=== PATIENT | male | born 1995 | race Hispanic/Latino ===

== ENCOUNTER 2019-05-18 23:04 | Emergency (ER) | payer OTHER, SELFPAY ==
[2019-05-19] MEDS ORDERED: HYDROCODONE/APAP 5/325 MG TAB ONE (00:07)
--- NOTE | 2019-05-19 00:44 | ER ---
Nurse's Notes [facility] Name: Micky Tavares Jr Age: 23 yrs Sex: Male : 1995 Arrival Date: 05/18/2019 Time: 23:08 Bed DIS3 Private MD: Diagnosis: Injury of muscle, fascia and tendon of triceps Presentation: 05/18 23:09 Presenting complaint: Patient states: About a week ago I worked out my triceps then la1 yesterday I noticed my right tricep was swollen and warm and now it extended past my elbow. Transition of care: patient was not received from another setting of care. Onset of symptoms was May 18, 2019. Risk Assessment: Do you want to hurt yourself or someone else? Patient reports no desire to harm self or others. Initial Sepsis Screen: Does the patient meet any 2 criteria? No. Patient's initial sepsis screen is negative. Does the patient have a suspected source of infection? No. Patient's initial sepsis screen is negative. Care prior to arrival: None. 23:09 Method Of Arrival: Ambulatory la1 23:09 Acuity: LETICIA 3 la1 Historical: - Allergies: 23:10 No Known Allergies; la1 - Home Meds: 23:10 None [Active]; la1 - PMHx: 23:11 None; la1 - Immunization history:: Adult Immunizations up to date. - Social history:: Smoking status: Patient/guardian denies using tobacco. - Ebola Screening: : No symptoms or risks identified at this time. Screenin/08 00:29 Abuse screen: Denies threats or abuse. Nutritional screening: No deficits noted. jb4 Tuberculosis screening: No symptoms or risk factors identified. Fall Risk None identified. Assessment: 05/18 23:40 General: Appears in no apparent distress. comfortable, Behavior is calm, cooperative, jb4 appropriate for age. Pain: Denies pain. Neuro: Level of Consciousness is awake, alert, obeys commands, Oriented to person, place, time, situation. Cardiovascular: Patient's skin is warm and dry. Respiratory: Airway is patent Respiratory effort is even, unlabored, Respiratory pattern is regular, symmetrical. GI: No signs and/or symptoms were reported involving the gastrointestinal system. : No signs and/or symptoms were reported regarding the genitourinary system. EENT: No signs and/or symptoms were reported regarding the EENT system. Derm: Skin is intact, Skin is pink, warm \T\ dry. Musculoskeletal: Circulation, motion, and sensation intact. Range of motion: intact in all extremities, Swelling present in palmar aspect of right forearm. 05/19 00:41 Reassessment: Patient appears in no apparent distress at this time. Patient and/or jb4 family updated on plan of care and expected duration. Pain level reassessed. Patient is alert, oriented x 3, equal unlabored respirations, skin warm/dry/pink. Patient denies pain at this time. 00:56 Reassessment: Patient appears in no apparent distress at this time. Patient and/or jb4 family updated on plan of care and expected duration. Pain level reassessed. Patient is alert, oriented x 3, equal unlabored respirations, skin warm/dry/pink. PT ambulated out of ED with steady gait, verbalized understanding of d/c and follow up instructions. denies questions or concerns. Vital Signs: 05/18 23:10 BP 129 / 76; Pulse 86; Resp 16; Temp 99.0; Pulse Ox 98% on R/A; Weight 65.77 kg; Height la1 5 ft. 8 in. (172.72 cm); 05/19 00:30 BP 111 / 64; Pulse 76; Resp 16; Pulse Ox 100% on R/A; jb4 05/18 23:10 Body Mass Index 22.05 (65.77 kg, 172.72 cm) la1 ED Course: 05/18 23:08 Patient arrived in ED. am2 23:10 Triage completed. la1 23:11 Arm band placed on left wrist. la1 23:19 Franko Nicholson, JAIR is Primary Nurse. jb4 23:29 Shalonda Cason FNP-C is PHCP. snw 23:29 Fred Patricia MD is Attending Physician. snw 23:40 Patient has correct armband on for positive identification. Bed in low position. Call jb4 light in reach. Side rails up X 1. Pulse ox on. NIBP on. 05/19 00:43 Pasquale Hudson MD is Referral Physician. snw 00:56 No provider procedures requiring assistance completed. Patient did not have IV access jb4 during this emergency room visit. Administered Medications: 00:27 Not Given (Patient Refused): [place] 5 mg-325 mg 1 tabs PO once jb4 Outcome: 00:43 Discharge ordered by . katerin 00:56 Discharged to home ambulatory. jb4 00:56 Condition: stable 00:56 Discharge instructions given to patient, Instructed on discharge instructions, follow up and referral plans. medication usage, keep left arm in sling, no lifting anything above 10 punds Demonstrated understanding of instructions, follow-up care, medications, Prescriptions given X 1. 00:59 Patient left the ED. jb4 Signatures: Shalonda Cason, SPRAGGER-C SPRAGGER-Csnw Abilio Cardoso, RN RN la1 Franko Nicholson RN RN jb4 Malika Oneil
--- NOTE | 2019-05-19 00:44 | EDPHYS ---
Physician Documentation [facility] Name: Micky Tavares Jr Age: 23 yrs Sex: Male : 1995 Arrival Date: 05/18/2019 Time: 23:08 Bed DIS3 Private MD: ED Physician Fred Patricia HPI: 05/18 23:56 This 23 yrs old Male presents to ER via Ambulatory with complaints of Arm snw swelling. 23:56 Onset: The symptoms/episode began/occurred suddenly. snw Historical: - Allergies: 23:10 No Known Allergies; la1 - Home Meds: 23:10 None [Active]; la1 - PMHx: 23:11 None; la1 - Immunization history:: Adult Immunizations up to date. - Social history:: Smoking status: Patient/guardian denies using tobacco. - Ebola Screening: : No symptoms or risks identified at this time. ROS: 23:55 Constitutional: Negative for fever, chills, and weight loss, Eyes: Negative for injury, snw pain, redness, and discharge, ENT: Negative for injury, pain, and discharge, Neck: Negative for injury, pain, and swelling, Cardiovascular: Negative for chest pain, palpitations, and edema, Respiratory: Negative for shortness of breath, cough, wheezing, and pleuritic chest pain, Abdomen/GI: Negative for abdominal pain, nausea, vomiting, diarrhea, and constipation, Back: Negative for injury and pain, : Negative for injury, bleeding, discharge, and swelling, Skin: Negative for injury, rash, and discoloration, Neuro: Negative for headache, weakness, numbness, tingling, and seizure. 23:55 MS/extremity: Positive for injury or acute deformity, swelling, tenderness, of the right elbow and right posterior arm. Exam: 23:53 Constitutional: This is a well developed, well nourished patient who is awake, alert, snw and in no acute distress. Head/Face: Normocephalic, atraumatic. Eyes: Pupils equal round and reactive to light, extra-ocular motions intact. Lids and lashes normal. Conjunctiva and sclera are non-icteric and not injected. Cornea within normal limits. Periorbital areas with no swelling, redness, or edema. ENT: Nares patent. No nasal discharge, no septal abnormalities noted. Tympanic membranes are normal and external auditory canals are clear. Oropharynx with no redness, swelling, or masses, exudates, or evidence of obstruction, uvula midline. Mucous membranes moist. Neck: Trachea midline, no thyromegaly or masses palpated, and no cervical lymphadenopathy. Supple, full range of motion without nuchal rigidity, or vertebral point tenderness. No Meningismus. Chest/axilla: Normal chest wall appearance and motion. Nontender with no deformity. No lesions are appreciated. Cardiovascular: Regular rate and rhythm with a normal S1 and S2. No gallops, murmurs, or rubs. Normal PMI, no JVD. No pulse deficits. Respiratory: Lungs have equal breath sounds bilaterally, clear to auscultation and percussion. No rales, rhonchi or wheezes noted. No increased work of breathing, no retractions or nasal flaring. Abdomen/GI: Soft, non-tender, with normal bowel sounds. No distension or tympany. No guarding or rebound. No evidence of tenderness throughout. Back: No spinal tenderness. No costovertebral tenderness. Full range of motion. Skin: Warm, dry with normal turgor. Normal color with no rashes, no lesions, and no evidence of cellulitis. Neuro: Awake and alert, GCS 15, oriented to person, place, time, and situation. Cranial nerves II-XII grossly intact. Motor strength 5/5 in all extremities. Sensory grossly intact. Cerebellar exam normal. Normal gait. Psych: Awake, alert, with orientation to person, place and time. Behavior, mood, and affect are within normal limits. 23:53 Musculoskeletal/extremity: Extremities: grossly normal except: noted in the right posterior elbow: swelling, tenderness, ROM: intact in all extremities, Sensation intact. Compartment Syndrome exam of affected extremity: no numbness, no tingling. Vital Signs: 23:10 BP 129 / 76; Pulse 86; Resp 16; Temp 99.0; Pulse Ox 98% on R/A; Weight 65.77 kg; Height la1 5 ft. 8 in. (172.72 cm); 05/19 00:30 BP 111 / 64; Pulse 76; Resp 16; Pulse Ox 100% on R/A; jb4 05/18 23:10 Body Mass Index 22.05 (65.77 kg, 172.72 cm) la1 MDM: 05/18 23:37 Patient medically screened. snw 05/19 00:44 Data reviewed: vital signs, nurses notes. Data interpreted: Pulse oximetry: on room air snw is 100 %. Interpretation: normal. Counseling: I had a detailed discussion with the patient and/or guardian regarding: the historical points, exam findings, and any diagnostic results supporting the discharge/admit diagnosis, the need for outpatient follow up, to return to the emergency department if symptoms worsen or persist or if there are any questions or concerns that arise at home. Special discussion: Based on the history and exam findings, there is no indication for further emergent testing or inpatient evaluation. I discussed with the patient/guardian the need to see the orthopedic surgeon for further evaluation of the symptoms. 05/18 23:48 Order name: Sling; Complete Time: 00:12 snw 05/18 23:48 Order name: Ice pack; Complete Time: 00:12 snw Administered Medications: 00:27 Not Given (Patient Refused): [place] 5 mg-325 mg 1 tabs PO once jb4 Disposition: 05/19/19 00:43 Discharged to Home. Impression: Injury of muscle, fascia and tendon of triceps. - Condition is Stable. - Discharge Instructions: Muscle Strain, Muscle Pain, Adult, RICE for Routine Care of Injuries, How to Use a Sling. - Prescriptions for Diclofenac Sodium 75 mg Oral Tablet Sustained Release - take 1 tablet by ORAL route 2 times per day; 30 tablet. - Work release form, Medication Reconciliation Form, Thank You Letter, Antibiotic Education, Prescription Opioid Use form. - Follow up: Pasquale Hudson MD; When: 2 - 3 days; Reason: Recheck today's complaints, Continuance of care. Signatures: Shalonda Caosn, CATH LABORATORY TECHNICIAN-C CATH LABORATORY TECHNICIAN-Csnw Abilio Cardoso RN RN la1 Franko Nicholson RN RN jb4 Corrections: (The following items were deleted from the chart) 00:59 00:43 05/19/2019 00:43 Discharged to Home. Impression: Injury of muscle, fascia and jb4 tendon of triceps. Condition is Stable. Forms are Medication Reconciliation Form, Thank You Letter, Antibiotic Education, Prescription Opioid Use. Follow up: Dr. Pasquale Hudson; When: 2 - 3 days; Reason: Recheck today's complaints, Continuance of care. snw
== END 2019-05-19 00:59 | disposition home or self-care (01) ==
LOC: ER 23:04
DX: S46.301A Unspecified injury of muscle, fascia and tendon of triceps, right arm, initial encounter (principal)
CPT/HCPCS: 99283